=== PATIENT | female | born 1955 | race Caucasian/White ===

== ENCOUNTER → 2017-03-13 | Outpatient (CLI) | payer OTHER ==
[~2017-03-13] MED LIST: ASPI-496 PO; CALC1CAP8 PO; CHOL2000 PO; MAGN250T9 PO; MULT1CAP19 PO; NABU750T PO; OMEG1CAP57 PO; OXYC-302 PO; PSYL0.5227 PO
== END | disposition home or self-care (01) ==
LOC: CFH 10:27
PROVIDERS: ATTEND Nurse Practitioner Family
DX: J20.9 Acute bronchitis, unspecified (principal)
CPT/HCPCS: 71020